=== PATIENT | female | born 1960 | race Caucasian/White ===

== ENCOUNTER → 2019-10-03 | Outpatient (CLI) | payer BC ==
[~2019-10-03] MED LIST: DIOVAN320 MG PO; ESTROGEL PO; FLEXERIL 1010 MG/TAB PO; MOBIC15 MG PO; NORCO 325 MG-51 TAB PO; PRISTIQ100 MG PO
== END ==
LOC: COL.LAB 10:53 → COL.RAD 10:53
DX: M25.552 Pain in left hip (principal)
CPT/HCPCS: J3301; Q9967

== ENCOUNTER 2019-10-29 13:04 | Inpatient (IN) | payer BC ==
[~2019-10-29] VITALS: Ht 162.6 cm; Wt 86.6 kg
[2019-11-08] MEDS ORDERED: PERCOCET 325 MG1 TA2 PO (12:04)
[2019-11-08] MEDS ORDERED: LIDODERM 5% PATC1 EA TP (12:47)
[2019-11-19] VITALS (10 sets, daily range): BP systolic 114–158; BP diastolic 63–79; PULSE 91–102; TEMP 97.9–98
--- NOTE | 2019-11-19 00:30 | NUR ---
PATIENT AWAKE, TAKES OXYCODONE 10MG PO AT THIS TIME WITH FLEXERIL 10MG PO FOR PAIN 05/09. DENIES N/V.
[2019-11-19] MEDS ORDERED: HCTZ 25MG TAB25 MG PO (07:44)
[2019-11-19] MEDS ORDERED: WELLBUTRIN 100100 MG PO (07:44)
[2019-11-19] MEDS ORDERED: TYLENOL 500MG500 MG PO (07:45)
--- NOTE | 2019-11-19 13:05 | NUR ---
PATIENT BACK IN ROOM 330 POST OP. ORIENTED BUT DROWSY. PATIENT HAS HISTORY OF NARCOTIC USE AT HOME FOR CHRONIC PAIN. PATIENT HAS HIGH TOLERANCE FOR PAIN MEDS. PATIENT C/O SEVERE PAIN AND RECEIVED IV DILAUDID, FENTANYL & DEMEROL IN PACU. PATIENT REQUESTING PAIN MEDS UPON ARRIVAL TO FLOOR. GAVE PRN ROXICODONE, TWO TABS WITH CRACKERS. LTH DRESSING IS CD&I WITH OCCLUSIVE DRESSING. TEDS & SCD'S TO BLE. POSITIVE PEDAL PULSES TO BLE. PATIENT ST. CATHED IN PACU FOR 500CC. IV FLUIDS INFUSING VIA PUMP INTO RIGHT HAND. NO C/O N/V. LIQUIDS AT BEDSIDE. HEAD TO TWO WNL. NO FAMILY OR FRIEND AT BEDSIDE. CALL LIGHT IN REACH.
--- NOTE | 2019-11-19 15:48 | NUR ---
CHELA met with the patient and the patient's friend, Oralia to complete initial assessment. CHELA obtained permission from the patient to continue assessment. The patient lives alone in [place]. The patient plans to stay with her friend Briana for a few days after discharge. The patient has a walker and reports independence with ADLs. The patient's PCP is Dr. Blayne Jo and patient receives medications from [facility] with no difficulties. The patient does not have advanced directives in the EMR. DPOA-HC form provided. The patient will have transportation at discharge. There are no additional needs at this time.
--- NOTE | 2019-11-19 20:13 | NUR ---
PATIENT IN BED, ASKING FOR PAIN MEDS, RATES PAIN 9/10 TO LEFT HIP. IS ALERT AND ORIENTED X4. FRIEND AT BEDSIDE. IV TO RIGHT HAND WITHOUT REDNESS OR SWELLING.
--- NOTE | 2019-11-19 20:30 | NUR ---
IVF CAPPED, ASSISTED PATIENT WITH AMBULATION IN HALLWAY WITH GAIT BELT/WALKER/2 ASSIST. DOES WELL WITH STEADY GAIT. BACK TO ROOM AND VOIDS WITHOUT PROBLEM. BACK TO BED WITH 1 ASSIST.
[2019-11-20] VITALS (7 sets, daily range): BP systolic 104–127; BP diastolic 53–71; PULSE 87–97; TEMP 98–99.7
--- NOTE | 2019-11-20 00:30 | NUR ---
MEDICATED WITH OXYCODONE 10MG PO FOR PAIN 7/10 TO LEFT HIP, FLEXERIL 10MG FOR MUSCLE SPASM.
--- NOTE | 2019-11-20 04:00 | NUR ---
Denies need for pain meds at this time.
--- NOTE | 2019-11-20 06:53 | NUR ---
awake and resting in bed on right side, bedside shift report received from SAMI Toure
[2019-11-20] MEDS ORDERED: NORCO 325 MG-7.1 TAB PO (07:08)
--- NOTE | 2019-11-20 07:45 | NUR ---
sitting up on side of bed, assited to lying back in bed and over on her right side for comfort,
--- NOTE | 2019-11-20 08:10 | NUR ---
full assessment completed, see interventions for further info, c/o pain 04/09 and medicated with roxicodone 10mg
--- NOTE | 2019-11-20 09:29 | NUR ---
physical therapy in to work with patient, up and ambulated out to [facility] and then back to room and into recliner
--- NOTE | 2019-11-20 10:42 | NUR ---
resting in chair, up to bathroom with assistance
--- NOTE | 2019-11-20 11:03 | NUR ---
occupational therapy in to work with patient
--- NOTE | 2019-11-20 11:14 | NUR ---
Initial visit; Patient thanked [facility] Services Rn for looking in on her and offering God's blessings and to keep her in [facility] Services Rn's prayers.
--- NOTE | 2019-11-20 11:40 | NUR ---
sitting up in chair ready to eat lunch, c/o pain 05/09 and medicated with hydrocodone 7/5mg 2 tabs
--- NOTE | 2019-11-20 12:45 | NUR ---
remains up in chair, informed will have therapy at 1300 and then back to bed
--- NOTE | 2019-11-20 13:05 | NUR ---
ambulated out to [facility] with physical therapy for group exercises
--- NOTE | 2019-11-20 14:14 | NUR ---
back to room after therapy and is still moderate assist to get into bed and to help with moving about in bed, Dr Damon nurse, Davide, SAMI notified and he will talk with Dr Damon, occlusive dressing to left hip removed, incision with kristy and is CD&I, covered with aquacel dressing
--- NOTE | 2019-11-20 15:57 | NUR ---
has been resting in bed, is awake and visiting with friends at this time
--- NOTE | 2019-11-20 17:39 | NUR ---
resting in bed after having many visitors, states she isn't hungry and just wants to rest
--- NOTE | 2019-11-20 18:33 | NUR ---
called nurse to room c/o not feeling well, states she feels hot and clamy, skin is wawrm and dry, BP 112/64 T. 99.7, P96, R 16 O2 sat 94%, c/o upset stomach and provided sprite per her request, repositioned for comfort
--- NOTE | 2019-11-20 18:50 | NUR ---
resting in bed on right side, bedside shift repeort given to Tejal, RN
--- NOTE | 2019-11-20 19:36 | NUR ---
Patient assisted to bathroom to void. Is tearful and reports pain 8/10 to left hip. Transfers slowly and requires moderate assist from bed to standing. Aquacel drsg in place to left hip. SL to right hand without redness or swelling. Assisted back to bed, patient does IS and takes pain meds at this time of [place] 7.5mg 2 tabs and Flexeril 10mg. Positioned to right side. Ice pack in place to left hip. Afebrile at this time.
[2019-11-21 00:23] VITALS: BP 122/61; PULSE 108; TEMP 99.9
--- NOTE | 2019-11-21 00:40 | NUR ---
Patient assisted to bathroom to void and back to bed. Does IS at side of bed as well as taking pain meds of Oxycodone 10mg po with ES Tylenol 1000mg for left hip pain. Has temp of 99.9 orally. Positioned in bed to right side. Hip precautions followed.
[2019-11-21 04:58] VITALS: BP 113/54; PULSE 92; TEMP 99.2
--- NOTE | 2019-11-21 05:00 | NUR ---
Offers no concerns at this time. VSS.
--- NOTE | 2019-11-21 07:33 | NUR ---
Report from Tejal GALLARDO.
[2019-11-21 08:42] VITALS: BP 125/55; PULSE 106; TEMP 98.7
--- NOTE | 2019-11-21 10:37 | NUR ---
PT OUT TO [facility] FOR THEARPY SLOW HALTING GAIT. COMPLETED THERAPY AND RETURNED TO ROOM WITH OUT INCIDENT. DISCHARGE ORDERS RECIEVED AND WILL GO HOME AFTER PM THERAPY. DRESSING TO LEFT HIP CDI.
[2019-11-21 12:46] VITALS: BP 94/56; PULSE 95; TEMP 98.3
--- NOTE | 2019-11-21 15:22 | NUR ---
DISCHARGE INSTRUCTIONS PROVIDED TO PT AND FRIEND. QUESTIONS SOLICITED AND ANSWERED. PT TAKEN TO FRONT BY WHEEL CHAIR WITH STAFF.
== END 2019-11-21 15:23 | disposition home or self-care (01) | DRG 470 ==
LOC: JCC 11-19 06:52
PROVIDERS: ADMIT Orthopaedic Surgery
PROC: 0SRB02Z Replacement of Left Hip Joint with Metal on Polyethylene Synthetic Substitute, Open Approach (ICD-10-PCS; principal; 2019-11-19 10:10)
DX: M16.12 Unilateral primary osteoarthritis, left hip (principal); F32.9 Major depressive disorder, single episode, unspecified; M79.7 Fibromyalgia; M06.9 Rheumatoid arthritis, unspecified; K21.9 Gastro-esophageal reflux disease without esophagitis; I10 Essential (primary) hypertension; G89.29 Other chronic pain; G47.33 Obstructive sleep apnea (adult) (pediatric); Z88.5 Allergy status to narcotic agent; Z88.8 Allergy status to other drugs, medicaments and biological substances; Z88.0 Allergy status to penicillin; Z87.11 Personal history of peptic ulcer disease; Z90.710 Acquired absence of both cervix and uterus; Z87.891 Personal history of nicotine dependence; Z87.440 Personal history of urinary (tract) infections
CPT/HCPCS: A9284; C1776; J0690; J1100; J1170; J2175; J2250; J2405; J2704; J2795; J3010; J7042; J7120

== ENCOUNTER 2019-11-08 09:40 | Emergency (ER) | payer BC ==
[~2019-11-08] VITALS: Ht 162.6 cm; Wt 97.7 kg
[2019-11-08 09:51] VITALS: TEMP 96.9
[2019-11-08] MEDS ORDERED: PERCOCET 325 MG1 TA2 PO (12:04)
[2019-11-08] MEDS ORDERED: LIDODERM 5% PATC1 EA TP (12:47)
[2019-11-08 12:59] VITALS: BP 127/73; PULSE 80
== END 2019-11-08 12:59 | disposition home or self-care (01) ==
LOC: COL.ER 09:40
DX: M25.552 Pain in left hip (principal); G89.29 Other chronic pain; M17.12 Unilateral primary osteoarthritis, left knee; I10 Essential (primary) hypertension
CPT/HCPCS: J1170

== ENCOUNTER → 2019-11-12 | Outpatient (CLI) | payer BC ==
[~2019-11-12] MED LIST changes: +LIDODERM 5% PATC1 EA TP; +PERCOCET 325 MG1 TA2 PO
[2019-11-12 16:29] LABS: HEMATOCRIT 45.1 % (37.0-47.0); MEAN CELL VOLUME 87 fl (80.0-100.0); MEAN CORPUSCULAR HEMOGLOBIN 29 pg (27.0-31.0); MEAN CORPUSCULAR HGB CONC 33 g/dl (33.0-37.0); MEAN PLATELET VOLUME 9.1 fl (7.4-10.4); PLATELET COUNT 310 K/mm3 (130-400); RED BLOOD COUNT 5.18 M/mm3 (4.10-5.30); REDCELL DISTRIBUTION WIDTH-CV 14.4 % (11.5-14.5)
[2019-11-12 16:35] LABS: MUCOUS Present /lpf; PH 5 (5-8); URINE APPEARANCE Cloudy; URINE BACTERIA Rare /hpf; URINE BILIRUBIN Negative (NEGATIVE); URINE BLOOD Negative (NEGATIVE); URINE COLOR Amber; URINE GLUCOSE Negative (NEGATIVE); URINE KETONE 1+ (NEGATIVE); URINE LEUKOCYTE ESTERASE Trace (NEGATIVE); URINE NITRATE Negative (NEGATIVE); URINE PROTEIN(semi-quant) 1+ (NEGATIVE); URINE UROBILINOGEN Negative (NEGATIVE)
[2019-11-12 16:54] LABS: ERYTHROCYTE SEDIMENTATION RATE 10 mm/hr (0-30)
[2019-11-12 17:07] LABS: COLLECTION METHOD CLEAN CATCH
== END ==
LOC: COL.LAB 15:47
PROVIDERS: Orthopaedic Surgery
DX: Z96.642 Presence of left artificial hip joint (principal)

== ENCOUNTER → 2019-11-15 | Outpatient (CLI) | payer BC ==
[~2019-11-15] MED LIST changes: +HCTZ 25MG TAB25 MG PO; +NORCO 325 MG-7.1 TAB PO; +TYLENOL 500MG500 MG PO; +WELLBUTRIN 100100 MG PO
== END ==
LOC: ZCOL.LAB 16:06 → COL.LAB 16:06
DX: Z47.1 Aftercare following joint replacement surgery (principal); Z96.642 Presence of left artificial hip joint